=== PATIENT | female | born 1955 | race Caucasian/White ===

== ENCOUNTER → 2017-10-01 | Outpatient (CLI) | payer MEDICAID ==
[~2017-10-01] VITALS: Ht 175.3 cm; Wt 72.5 kg
[~2017-10-01] MED LIST: ACETAMINOPHEN 325 MG TAB ONE; CHLORHEXIDINE GLUCONATE 2 % 1 PACK (2 CLOTHS) TOPICAL PRN; EPINEPHrine HCL PF/SF (1:1000) 1 MG/ML AMP I-OCULAR ONE; HYALURONIDASE/LIDOCAINE/BUPIVACAINE 5 ML SYR RIGHT EYE ONE; IBUP1TAB7 PO; LACTATED RINGER'S 1000 ML IV PRN; METOPROLOL TARTRATE 25 MG TAB PO PRN; POVIDONE IODINE 5% (ANTISEPSIS KIT) 4 APPLICATIONS EACH NARE PRN; PROPOFOL 200 MG/20 ML AMP ONE; SODIUM CHLORID 0.9% 500 ML IV PRN; TOBRAMYCIN/DEXAMETHASONE OPTH OINT 3.5 GM TUBE ONE; VISCOAT OPHT IRRIG SOLN 0.75 ML SYRINGE ONE
[2017-10-01 08:08] VITALS: PULSE 70
[2017-10-01] MEDS: TROPICAMIDE 1% OPHT SOLN 15 ML BTL RIGHT EYE SCH ×3 (08:10→08:20)
[2017-10-01] MEDS: TETRACAINE 0.5% OPTH SOLN 4 ML BTL RIGHT EYE SCH ×3 (08:10→08:20)
[2017-10-01] MEDS: PHENYLEPHRINE HCL 10% OPTH SOLN 5 ML BTL RIGHT EYE SCH ×3 (08:10→08:20)
[2017-10-01] MEDS: CYCLOPENTOLATE HCL 1% OPHT SOLN 2 ML BTL RIGHT EYE SCH ×3 (08:10→08:20)
[2017-10-01 08:55] VITALS: PULSE 63
[2017-10-01 09:34] VITALS: TEMP 97.8
--- NOTE | 2017-10-01 09:36 | PD.OP ---
Operative Report Date of Surgery: Oct 01, 2017 Preoperative Diagnosis: (1) Nuclear sclerotic cataract of right eye Postoperative Diagnosis: (1) Pseudophakia of right eye Procedure: phacoemulsification and intraocular lens implant right eye Anesthesia: retrobulbar block, MAC Surgeon: Kaylen Carranza Assistant Professor Of Music(s): none Operation and Findings: Patient was consented for surgery, given a retrobulbar block by anesthesia, and taken back to the operating room. She was prepped and draped in the usual sterile fashion for ophthalmic surgery. A wire lid speculum was placed in the right eye. A paracentesis incision was created at the 11 o'clock position on the limbus. Vision blue dye and viscoelastic was injected into the anterior chamber. The main incision was created at the 8 o'clock position on the limbus with a 2.4 mm keratome. A continuous curvilinear capsulorrhexis was made on the anterior lens capsule. Hydrodissection was used to separate the lens from the capsule. Phacoemulsification was used to remove the lens nucleus material. Irrigation and aspiration was used to remove the remaining cortical material. The lens implant ([id number] SN [id number]) was placed in the capsular bag. Viscoelastic was removed with irrigation and aspiration. The incisions were irrigated and found to be watertight. Tobradex ointment, a patch, and shield were placed on the right eye. The patient was sent to PACU in stable condition. Kaylen Carranza MD Oct 01, 2017 09:36
[2017-10-01 10:00] VITALS: BP 96/64; PULSE 61; RESP 14; O2SAT 96
--- NOTE | 2017-10-01 21:01 | EKG ---
Date Performed: 10/01/2017 Time Performed: 08:29:07 PTAGE: 62 years EKG: SINUS BRADYCARDIA BORDERLINE ECG NO PREVIOUS TRACING DOCTOR: Denny Skelton Interpretating Date/Time 10/01/2017 21:00:16
== END ==
LOC: PHSDC 07:18
PROVIDERS: ATTEND Ophthalmology
DX: H25.11 Age-related nuclear cataract, right eye (principal); E07.9 Disorder of thyroid, unspecified; E05.00 Thyrotoxicosis with diffuse goiter without thyrotoxic crisis or storm; Z01.810 Encounter for preprocedural cardiovascular examination
CPT/HCPCS: 00142; 66984; 93005; J0171; J7040; V2632

== ENCOUNTER 2018-05-28 12:50 | Observation (INO) ==
[2018-05-28] MEDS ORDERED: Sod Chloride 0.9% Inj 1,000 ML IV.SIG ONE (14:10)
--- NOTE | 2018-05-28 14:17 | ED ---
HPI General Chief Complaint: Syncope Stated Complaint: ABD Pain Time Seen by Provider: 05/28/18 13:54 History of Present Illness HPI narrative: 63-year-old female presented to emergency room for syncope. Yesterday she was discharged home after pelvic floor reconstruction surgery by . Today in the morning she removed the Alonso catheter. Patient stated that he had pain increased and was about 5 out of 10 , at about 10 AM patient felt weak, dizzy so blackened her eyes, patient was able to sit down before she syncopized. Syncope episode was witnessed by her daughter, as per here patient was unresponsive for 1 minute with tremor in his hands. Patient denies any injury, she is fully oriented in the emergency room, vitals stable. She denies chest pain, shortness of breath, dizziness. Patient was able to urinate earlier today. She she still has abdominal pain, which is mild now. Related Data Home Medications Medication Instructions Recorded Confirmed ibuprofen 400 mg PO QID PRN 05/21/18 05/28/18 vit C-E-zinc [id number] 2 tab PO DAILY 05/21/18 05/28/18 [[facility]] Allergies Allergy/AdvReac Type Severity Reaction Status Date / Time procaine [From Novocain] Allergy Tachycardia Verified 05/28/18 13:45 Review of Systems ROS: all other systems reviewed are negative Constitutional Comments: Syncope [facility] Social History Social History Substance History: No History of Abuse Second Hand Smoke Exposure: No Smoking Status: Current every day smoker Tobacco Type: Cigarettes How Often Do You Have a Drink Containing Alcohol: 2 to 3 times a week Recent Travel in [facility] within the Last 8 Weeks: No Recent Out of Country Travel within the Last 8 Weeks: No Immunization History Tetanus Immunization: Unsure Exam Narrative Exam Narrative: GENERAL: 63-year-old female in no apparent distress. SKIN: Focused skin assessment warm/dry. HEAD: Atraumatic. Normocephalic. EYES: Pupils equal and round. No scleral icterus. No injection or drainage. ENT: No nasal bleeding or discharge. Mucous membranes pink and moist. NECK: Trachea midline. No JVD. CARDIOVASCULAR: Regular rate and rhythm. No murmur appreciated. RESPIRATORY: No accessory muscle use. Clear to auscultation. Breath sounds equal bilaterally. GASTROINTESTINAL: Abdomen soft,tenderness over lower abdomen. MUSCULOSKELETAL: No obvious deformities. No clubbing. No cyanosis. No edema. NEUROLOGICAL: Awake and alert. No obvious cranial nerve deficits. Motor grossly within normal limits. Normal speech. PSYCHIATRIC: Appropriate mood and affect; insight and judgment normal. Course Initial Documented Vital Signs Pulse Rate 66 05/28/18 13:47 Respiratory Rate 20 05/28/18 13:47 Blood Pressure 131/78 05/28/18 13:47 Pulse Oximetry 100 05/28/18 13:47 Last Documented Vital Signs Temperature 98.2 F 05/28/18 13:50 Pulse Rate 70 05/28/18 13:50 Respiratory Rate 20 05/28/18 13:47 Blood Pressure 131/78 05/28/18 13:47 Pulse Oximetry 97 05/28/18 15:00 Medical Decision Making MDM Narrative Medical decision making narrative: Blood work ordered to rule out cardiac event , IV fluids given. Reevaluation is pending. Urine analysis is positive for UTI, first set of cardiac enzymes is negative. White count is elevated, possibly due to recent surgery or UTI. Pain improved spontaneously. Patient will be placed on observation for syncope episode. Case discussed with Dr. Palmer. Medical Screen Exam Complete: Yes Emergency Medical Condition: Yes Differential Diagnosis Differential Diagnosis: Cardiac syncope versus vasovagal syncope. Lab Data Result diagrams: 05/28/18 14:13 05/28/18 14:13 Lab Results 05/28/18 05/28/18 05/28/18 Range/Units 14:13 14:13 14:58 WBC 17.1 H (4.0-11.0) th/mm3 RBC 4.03 (4.00-5.30) mil/mm3 Hgb 12.6 (11.6-15.3) gm/dL Hct 36.6 (35.0-46.0) % MCV 90.9 (80.0-100.0) fL MCH 31.2 (27.0-34.0) pg MCHC 34.3 (32.0-36.0) % RDW 13.7 (11.6-17.2) % Plt Count 244 (150-450) th/mm3 MPV 8.3 (7.0-11.0) fL Neut % (Auto) 84.3 H (16.0-70.0) % Lymph % (Auto) 8.7 L (9.0-44.0) % [place] % (Auto) 6.8 (0.0-8.0) % Eos % (Auto) 0.1 (0.0-4.0) % Baso % (Auto) 0.1 (0.0-2.0) % Neut # (Auto) 14.5 H (1.8-7.7) th/mm3 Lymph # (Auto) 1.5 (1.0-4.8) th/mm3 [place] # (Auto) 1.2 H (0.0-0.9) th/mm3 Eos # (Auto) 0.0 (0.0-0.4) th/mm3 Baso # (Auto) 0.0 (0.0-0.2) th/mm3 WBC Differential . Differential Comment Auto diff final Sodium 140 (136-145) meq/L Potassium 3.6 (3.5-5.1) meq/L Chloride 107 (98-107) meq/L Carbon Dioxide 24.7 (21.0-32.0) meq/L Anion Gap 8 (5-15) meq/L BUN 14 (7-18) mg/dL Creatinine 0.90 (0.50-1.00) mg/dL Estimated GFR 63 L (>89) mL/min Random Glucose 92 (74-106) mg/dL Calcium 8.7 (8.5-10.1) mg/dL Total Bilirubin 0.8 (0.2-1.0) mg/dL AST 22 (15-37) U/L ALT 22 (10-53) U/L Alkaline Phosphatase 71 (45-117) U/L Troponin I Less than 0.02 L (0.02-0.05) ng/mL Total Protein 7.3 (6.4-8.2) g/dL Albumin 3.3 L (3.4-5.0) g/dL Urine Color [place] H (Yellw/Straw) Urine Clarity Cloudy H (Clear) Urine pH 8.0 (5.0-8.5) Ur Specific [place] 1.003 (1.002-1.035) Urine Protein 100 H (Neg-Trace) mg/dL Urine Glucose (UA) Negative (Negative) mg/dL Urine Ketones Negative (Negative) mg/dL Urine Occult Blood Large H (Negative) Urine Nitrate Negative (Negative) Urine Bilirubin Negative (Negative) Urine Urobilinogen Less than 2 (Less than 2) mg/dL Ur Leukocyte Esterase Large H (Negative) Urine RBC 52 H (0-3) /hpf Urine WBC 169 H (0-5) /hpf Urine WBC Clumps Few H (None) Ur Squamous Epith Cells 8 (0-5) /hpf Urine Bacteria Moderate H (None) /hpf Micro UA Comment Culture indicated Ur Microscopic Review Not Reportable Urine Culture Comments Culture indicated Discharge Plan Discharge Disposition Patient Disposition: ED Admit(ED Internal Use Only) Discharge Condition Condition: Fair Discharge Order Discharge Orders: ED Use Only Admit Order (Routine); Ordered 05/28/18 Ordered By: Hu Lieberman Physicians Team ED Provider: Hu Lieberman Primary Care Provider: UNKNOWN, Rxs /Orders / Referrals /Forms Prescriptions: No Action ibuprofen 400 mg Tablet 400 mg PO QID PRN (Reason: Pain) RF: 0 vit C-E-zinc [id number] [[facility]] 50 mg-15 unit- 4.5 mg-2.5 mg Tablet,Chewable 2 tab PO DAILY RF: 0 Discharge Interventions Interventions: Vital Signs Last Done: 05/28/18 13:50 Status ED Status: Admitted Observation Patient
[2018-05-28 14:40] LABS: Baso % (Auto) 0.1 % (0.0-2.0); Eos % (Auto) 0.1 % (0.0-4.0); Hematocrit 36.6 % (35.0-46.0); Hemoglobin 12.6 gm/dL (11.6-15.3); Lymph # (Auto) 1.5 th/mm3 (1.0-4.8); Lymph % (Auto) 8.7 % (9.0-44.0); Mean Corpuscular HGB Conc 34.3 % (32.0-36.0); Mean Corpuscular Hemoglobin 31.2 pg (27.0-34.0); Mean Corpuscular Volume 90.9 fL (80.0-100.0); Mean Platelet Volume 8.3 fL (7.0-11.0); Mono # (Auto) 1.2 th/mm3 (0.0-0.9); Mono % (Auto) 6.8 % (0.0-8.0); Neut # (Auto) 14.5 th/mm3 (1.8-7.7); Neut % (Auto) 84.3 % (16.0-70.0); Platelet Count 244 th/mm3 (150-450); Red Blood Count 4.03 mil/mm3 (4.00-5.30); Red Cell Distribution Width 13.7 % (11.6-17.2); White Blood Count 17.1 th/mm3 (4.0-11.0)
[2018-05-28 15:06] LABS: Alanine Aminotransferase 22 U/L (10-53); Alkaline Phosphatase 71 U/L (45-117); Total Protein 7.3 g/dL (6.4-8.2)
[2018-05-28 15:09] LABS: Albumin 3.3 g/dL (3.4-5.0); Anion Gap 8 meq/L (5-15); Aspartate Aminotransferase 22 U/L (15-37); Blood Urea Nitrogen 14 mg/dL (7-18); Calcium 8.7 mg/dL (8.5-10.1); Carbon Dioxide 24.7 meq/L (21.0-32.0); Chloride 107 meq/L (98-107); Glomerular Filtration Rate 63 mL/min (>89); Glucose,Random 92 mg/dL (74-106); Potassium 3.6 meq/L (3.5-5.1); Sodium 140 meq/L (136-145)
[2018-05-28 15:33] LABS: Bacteria,Urine Moderate /hpf; Bilirubin,Urine Negative (Negative); Clarity,Urine Cloudy (Clear); Color,Urine Pink (Yellw/Straw); Glucose,Urine (UA) Negative (Negative); Leukocyte Esterase,Urine Large (Negative); Nitrite,Urine Negative (Negative); Specific Gravity,Urine 1.003 (1.002-1.035); Squamous Epithelial Cell,Urine 8 /hpf (0-5)
[2018-05-28] MEDS ORDERED: levoFLOXacin 500 MG Tablet PO ONE (15:37)
[2018-05-28] MEDS ORDERED: Bisacodyl 10 MG Supp RECTAL PRN (16:29)
--- NOTE | 2018-05-28 17:49 | P.HPIM ---
History of Present Illness Primary Care Physician: UNKNOWN Chief Complaint: Syncope History of Present Illness: Mrs. Miguel is a 63-year-old female. She has no significant past chronic medical history. Yesterday she did have pelvic floor reconstruction surgery. She reports that she had pain medications that she took last night and this morning. Pain medication is uncertain, I cannot find a record in the system and patient cannot recall the name. However, pain treatment is likely contributory. The patient reports that after she got out of bed for the second time she was walking into the kitchen and started having dizziness and difficulty seeing. Her daughter came and witnessed her passed out for approximately 1 minute. She regained consciousness without any residual confusion or recurrence of symptoms. No other complaints. No chest pain. Review of Systems Constitutional: No fevers, no chills no night sweats, no fatigue, no weakness Eyes: No eye pain, no blurry vision, no loss of vision ENT: No sore throat, no ear pain, no rhinorrhea Cardiovascular: No chest pain, no tachycardia, no palpitations, no syncope Respiratory: No wheezing, no cough, no shortness of breath Gastrointestinal: No abdominal pain, no black tarry stools, no bright red blood per rectum, no vomiting, no diarrhea Musculoskeletal: No joint pain, no muscle cramps, no stiffness Integumentary: No rash, no ulcers, no drainage Neurologic: No sensory loss, no loss of motor function, no dizziness Psychiatric: No behavioral changes, no hallucinations, no suicidal ideations [facility] Family History Family History Other Osteoarthritis Social History Social History Substance History: No History of Abuse Second Hand Smoke Exposure: No Smoking Status: Current every day smoker Tobacco Type: Cigarettes How Often Do You Have a Drink Containing Alcohol: 2 to 3 times a week Recent Travel in [facility] within the Last 8 Weeks: No Recent Out of Country Travel within the Last 8 Weeks: No Immunization History Tetanus Immunization: Unsure Medications and Allergies Allergies Allergy/AdvReac Type Severity Reaction Status Date / Time procaine [From Novocain] Allergy Tachycardia Verified 05/28/18 13:45 Home Medications Medication Instructions Recorded Confirmed Type ibuprofen 400 mg PO QID PRN 05/21/18 05/28/18 History vit C-E-zinc [id number] 2 tab PO DAILY 05/21/18 05/28/18 History [facility] Active Medications: Active Medications Acetaminophen (Tylenol) 650 mg PO Q4H PRN PRN Reason: Temp > 100.4 Al Hydroxide/Mg Hydroxide (Milk Of Magnesia Liq) 30 ml PO Q12H PRN PRN Reason: Mild Constipation Bisacodyl (Dulcolax Supp) 10 mg RECTAL DAILY PRN PRN Reason: SEVERE CONSITIPATION Lactulose (Lactulose Liq) 30 ml PO DAILY PRN PRN Reason: SEVERE CONSITIPATION Ondansetron HCl (Zofran Inj) 4 mg IV.PUSH Q6H PRN PRN Reason: NAUSEA OR VOMITING Senna/Docusate Sodium (Tatiana-Colace) 1 tab PO BID NAYELI Sennosides (Senokot) 17.2 mg PO Q12H PRN PRN Reason: Moderate Constipation Sodium Chloride (Ns Flush) 2 ml IV.FLUSH BID NAYELI Sodium Chloride (Ns Flush) 2 ml IV.FLUSH PRN PRN PRN Reason: FLUSH AFTER USING IV ACCESS Physical Exam Vital signs: Last Vital Signs Temp 98.2 F 05/28/18 13:50 Pulse 76 05/28/18 17:03 Resp 17 05/28/18 17:03 BP 117/62 05/28/18 17:03 Pulse Ox 100 05/28/18 17:03 Intake & Output 05/26/18 05/27/18 05/28/18 05/29/18 06:59 06:59 06:59 06:59 Intake Total 1000 / 1000 Balance 1000 / 1000 Weight 71.214 kg Narrative: GENERAL: NAD, A&Ox3 HEAD: Normocephalic. NECK: Supple, trachea midline. No lymphadenopathy. No carotid bruits. EYES: No scleral icterus. No injection or drainage. CARDIOVASCULAR: Regular rate and rhythm without murmurs, gallops, or rubs. RESPIRATORY: Breath sounds equal bilaterally. No accessory muscle use. GASTROINTESTINAL: Abdomen soft, non-tender, nondistended. MUSCULOSKELETAL: No cyanosis, or edema. SKIN: Warm and dry. NEURO: No focal neurological deficits. Results Labs CBC & Chem 7: 05/28/18 14:13 05/28/18 14:13 Caprini VTE Risk Assessment Caprini VTE Risk Assessment: No/Low Risk (score <= 1) Caprini Risk Assessment Model: Point Value = 1 Point Value = 2 Point Value = 3 Point Value = 5 Age 41-60 Minor surgery BMI > 25 kg/m2 Swollen legs Varicose veins or History of unexplained or recurrent spontaneous Oral contraceptives or hormone replacement Sepsis (< 1 month) Serious lung disease, including pneumonia (< 1 month) Abnormal pulmonary function Acute myocardial infarction Congestive heart failure (< 1 month) History of inflammatory bowel disease Medical patient at bed rest Age 61-74 Arthroscopic surgery Major open surgery (> 45 min) Laparoscopic surgery (> 45 min) Malignancy Confined to bed (> 72 hours) Immobilizing plaster cast Central venous access Age >= 75 History of VTE Family history of VTE Factor V Leiden Prothrombin [id number] Lupus anticoagulant Anticardiolipin antibodies Elevated serum homocysteine Heparin-induced thrombocytopenia Other congenital or acquired thrombophilia Stroke (< 1 month) Elective arthroplasty Hip, pelvis, or leg fracture Acute spinal cord injury (< 1 month) Prophylaxis Regimen: Total Risk Factor Score Risk Level Prophylaxis Regimen 0-1 Low Early ambulation 2 Moderate Order ONE of the following: *Sequential Compression Device (SCD) *Heparin 5000 units SQ BID 3-4 Higher Order ONE of the following medications: *Heparin 5000 units SQ TID *Enoxaparin/Lovenox 40 mg SQ daily (WT < 150 kg, CrCl > 30 mL/min) *Enoxaparin/Lovenox 30 mg SQ daily (WT < 150 kg, CrCl > 10-29 mL/min) *Enoxaparin/Lovenox 30 mg SQ BID (WT < 150 kg, CrCl > 30 mL/min) AND/OR *Sequential Compression Device (SCD) 5 or more Highest Order ONE of the following medications: *Heparin 5000 units SQ TID (Preferred with Epidurals) *Enoxaparin/Lovenox 40 mg SQ daily (WT < 150 kg, CrCl > 30 mL/min) *Enoxaparin/Lovenox 30 mg SQ daily (WT < 150 kg, CrCl > 10-29 mL/min) *Enoxaparin/Lovenox 30 mg SQ BID (WT < 150 kg, CrCl > 30 mL/min) AND *Sequential Compression Device (SCD) Assessment and Plan Plan 63-year-old female admitted secondary to syncopal episode. Urinary tract infection present. Syncope Low risk for cardiac disease so echocardiogram is not needed Bilateral carotid ultrasound Orthostatic blood pressure checks Follow on telemetry Urinary tract infection May be contributory Levaquin Probiotics Status post pelvic floor reconstruction surgery [place] as needed for pain Follow-up as an outpatient DVT prophylaxis SCDs
--- NOTE | 2018-05-28 19:03 | US ---
EXAM DATE: 05/28/2018 6:56 PM EST AGE/SEX: 63 years / Female INDICATIONS: Syncope. CLINICAL DATA: This is the patient's initial encounter. Patient reports that signs and symptoms have been present for 1 day and indicates a pain score of 0/10. MEDICAL/SURGICAL HISTORY: . Bladder prolapse. Hard of hearing. Hypotension. MRSA. Rectal prolap se. Tubal ligation. Cataract extraction. COMPARISON: No prior exams available for comparison. VELOCITY PARAMETERS: ICA/CCA Ratio: Right 1.0 , Left 0.9 ICA: Right 74 cm/sec, Left 70 cm/sec CCA: Right 77 cm/sec, Left 76 cm/sec ECA: Right 59 cm/sec, Left 62 cm/sec Vertebral: Right 45 cm/sec antegrade, Left 47 cm/sec antegrade FINDINGS: Right Carotid: No significant plaque is visualized.The waveforms are within normal limits. Left Carotid: No significant plaque is visualized. The waveforms are within normal limits. Other: None. CONCLUSION: 1. Right Internal Carotid Artery: Negative for carotid stenosis. 2. Left Internal Carotid Artery: Negative for carotid stenosis. Electronically signed by: Walter Mclean MD 05/28/2018 7:02 PM EST
[2018-05-28] MEDS: Senna/Docusate Sodium 8.6/50 MG Tablet PO SCH (21:59)
[2018-05-29] MEDS ORDERED: Sod Chloride 0.9% Inj 1,000 ML IV.SIG SCH ×2 (08:17→13:00)
[2018-05-29] MEDS: Senna/Docusate Sodium 8.6/50 MG Tablet PO SCH ×2 (09:03→21:38)
[2018-05-29] MEDS: Lactobacillus Acidophilus/L. Spores Tablet PO SCH ×3 (09:03→17:03)
[2018-05-29 10:35] LABS: Baso % (Auto) 0.2 % (0.0-2.0); Eos # (Auto) 0.1 th/mm3 (0.0-0.4); Eos % (Auto) 0.5 % (0.0-4.0); Hematocrit 34.9 % (35.0-46.0); Hemoglobin 11.8 gm/dL (11.6-15.3); Lymph # (Auto) 1.2 th/mm3 (1.0-4.8); Lymph % (Auto) 11.9 % (9.0-44.0); Mean Corpuscular Hemoglobin 31.7 pg (27.0-34.0); Mean Corpuscular Volume 93.5 fL (80.0-100.0); Mean Platelet Volume 7.7 fL (7.0-11.0); Mono # (Auto) 0.7 th/mm3 (0.0-0.9); Mono % (Auto) 7.1 % (0.0-8.0); Neut # (Auto) 8.1 th/mm3 (1.8-7.7); Neut % (Auto) 80.3 % (16.0-70.0); Platelet Count 197 th/mm3 (150-450); Red Blood Count 3.73 mil/mm3 (4.00-5.30); Red Cell Distribution Width 13.4 % (11.6-17.2); White Blood Count 10.1 th/mm3 (4.0-11.0)
--- NOTE | 2018-05-29 14:29 | P.PNIM ---
Subjective Interval history: Patient is seen lying quietly in bed. She tells me that she is somewhat fatigued but is feeling better. Still has some feeling of dizziness. Pain is adequately controlled. No chest pain or shortness of breath. She does report that she has chronically low blood pressure but not this low. Physical Exam Vital signs: Last Vital Signs Temp 97.8 F 05/29/18 07:55 Pulse 79 05/29/18 12:19 Resp 16 05/29/18 12:19 BP 94/53 L 05/29/18 12:19 Pulse Ox 97 05/29/18 12:19 Intake & Output 05/27/18 05/28/18 05/29/18 05/30/18 06:59 06:59 06:59 06:59 Intake Total 1834 / 1834 1000 / 1000 Balance 1834 / 1834 1000 / 1000 Weight 71.214 kg Narrative: GENERAL: Well-nourished, well-developed adult female in no obvious distress. SKIN: Warm and dry. HEAD: Atraumatic. Normocephalic. CARDIOVASCULAR: Regular rate and rhythm. RESPIRATORY: No accessory muscle use. Clear to auscultation. Breath sounds equal bilaterally. GASTROINTESTINAL: Abdomen soft, mildly tender, non-distended. Positive bowel sounds. MUSCULOSKELETAL: Extremities without clubbing, cyanosis, or edema. No obvious deformities. NEUROLOGICAL: Awake and alert. No obvious cranial nerve deficits. Motor grossly within normal limits. Normal speech. PSYCHIATRIC: Appropriate mood and affect; insight and judgment good. Results Labs CBC & Chem 7: 05/29/18 10:22 05/28/18 14:13 Imaging Imaging: Impressions Carotid Doppler Study 05/28/18 00:00 CONCLUSION: 1. Right Internal Carotid Artery: Negative for carotid stenosis. 2. Left Internal Carotid Artery: Negative for carotid stenosis. Assessment and Plan Plan Plan 63-year-old female admitted secondary to syncopal episode. Urinary tract infection present. Syncope Low risk for cardiac disease so echocardiogram is not needed Bilateral carotid ultrasound; negative Orthostatic blood pressure checks Bolused 1 L in the ED with some improvement. Additional 2 L bolus given today. Follow on telemetry Urinary tract infection May be contributory Levaquin; culture sensitivity Probiotics Status post pelvic floor reconstruction surgery on 05/27 w/ Dr. Marquis Ravi as needed for pain Surgeon notified; declined consult. Follow-up as an outpatient Hemoglobin 14.5 pre-op; 12.6 --> 11.8 now. Likely dilution. Monitor. DVT prophylaxis SCDs Discharge planning: Likely home Progress Note: Quality VTE Deep Vein Thrombosis/Pulmonary Embolism Present on Admission: No
[2018-05-29] MEDS ORDERED: levoFLOXacin 500 MG Tablet PO SCH (16:00)
[2018-05-29 17:45] LABS: Hematocrit 33.1 % (35.0-46.0); Hemoglobin 11.4 gm/dL (11.6-15.3)
[2018-05-29] MEDS: Acetaminophen 325 MG Tablet PO PRN (21:38)
[2018-05-30] MEDS: Acetaminophen 325 MG Tablet PO PRN (04:45)
[2018-05-30 05:20] LABS: Hematocrit 33.2 % (35.0-46.0); Hemoglobin 11.3 gm/dL (11.6-15.3)
[2018-05-30] MEDS: Lactobacillus Acidophilus/L. Spores Tablet PO SCH (08:34)
[2018-05-30] MEDS: Senna/Docusate Sodium 8.6/50 MG Tablet PO SCH (08:34)
--- NOTE | 2018-05-30 08:52 | P.PNIM ---
Subjective Interval history: Patient is seen lying in bed. She reports that she does feel better. Has passed a clot with a little bit of bleeding, not bleeding now. No further episodes of dizziness or syncope. No chest pain or shortness of breath. Discussed that syncopal episode at home was likely due to a combination of dehydration and pain medication. Recommend that she reduce or avoid opioid pain medicines if able to control pain with ibuprofen or acetaminophen instead. Physical Exam Vital signs: Last Vital Signs Temp 98.7 F 05/30/18 08:00 Pulse 67 05/30/18 08:00 Resp 20 05/30/18 08:00 BP 93/63 L 05/30/18 08:00 Pulse Ox 94 L 05/30/18 08:00 Intake & Output 05/28/18 05/29/18 05/30/18 05/31/18 06:59 06:59 06:59 06:59 Intake Total 1834 / 1834 2480 / 2480 Balance 1834 / 1834 2480 / 2480 Weight 71.214 kg Narrative: GENERAL: Well-nourished, well-developed adult female in no obvious distress. SKIN: Warm and dry. HEAD: Atraumatic. Normocephalic. CARDIOVASCULAR: Regular rate and rhythm. RESPIRATORY: No accessory muscle use. Clear to auscultation. Breath sounds equal bilaterally. GASTROINTESTINAL: Abdomen soft, mildly tender, non-distended. Positive bowel sounds. MUSCULOSKELETAL: Extremities without clubbing, cyanosis, or edema. No obvious deformities. NEUROLOGICAL: Awake and alert. No obvious cranial nerve deficits. Motor grossly within normal limits. Normal speech. PSYCHIATRIC: Appropriate mood and affect; insight and judgment good. Results Labs CBC & Chem 7: 05/30/18 04:23 05/28/18 14:13 Labs: Microbiology 05/28/18 14:58 Clean Catch Urine Urine Culture - Final No growth in 48 hours Assessment and Plan Plan Plan 63-year-old female admitted secondary to syncopal episode. Urinary tract infection present. Syncope -resolved. Low risk for cardiac disease so echocardiogram is not needed Bilateral carotid ultrasound; negative Orthostatic blood pressure checks Bolused 1 L in the ED with some improvement. Additional 2 L bolus given today. Follow on telemetry Likely low blood pressure related to pain medication Urinary tract infection -resolved. May be contributory Levaquin; culture sensitivity -no growth. Probiotics Status post pelvic floor reconstruction surgery on 05/27 w/ Dr. Marquis jolly. [place] as needed for pain Surgeon notified; declined consult. Follow-up as an outpatient Hemoglobin 14.5 pre-op; 12.6 --> 11.8 now. Likely dilution. Monitor. DVT prophylaxis SCDs Discharge planning: Likely home Progress Note: Quality VTE Deep Vein Thrombosis/Pulmonary Embolism Present on Admission: No
--- NOTE | 2018-05-30 08:58 | P.DS ---
DS: Providers Date of admission: 05/28/18 17:03 Primary care physician: UNKNOWN Consults: 05/28/18 17:12 HUB Only Consult Order Routine Consulting Provider: [facility],Insurance Brief History from admission: Mrs. Miguel is a 63-year-old female. She has no significant past chronic medical history. Yesterday she did have pelvic floor reconstruction surgery. She reports that she had pain medications that she took last night and this morning. Pain medication is uncertain, I cannot find a record in the system and patient cannot recall the name. However, pain treatment is likely contributory. The patient reports that after she got out of bed for the second time she was walking into the kitchen and started having dizziness and difficulty seeing. Her daughter came and witnessed her passed out for approximately 1 minute. She regained consciousness without any residual confusion or recurrence of symptoms. No other complaints. No chest pain. DS: Summary 63-year-old female admitted secondary to syncopal episode. Syncope -resolved. Low risk for cardiac disease so echocardiogram is not needed; Bilateral carotid ultrasound; negative Bolused 1 L in the ED with some improvement. Additional 2 L bolus given today. Likely due to low blood pressure related to pain medication and dehydration Urinary tract infection -resolved. May be contributory Levaquin; culture sensitivity -no growth. Status post pelvic floor reconstruction surgery on 05/27 w/ Dr. Cho -cassius. Jackson as needed for pain; try to use NSAIDs instead to avoid repeat syncopal episode Surgeon notified; declined consult. Follow-up as an outpatient Hemoglobin 14.5 pre-op; 12.6 --> 11.8 now. Likely dilution. Stable Time Spent with Patient Total time spent providing and/or coordinating discharge services: < 30 min Quality: VTE Deep Vein Thrombosis/Pulmonary Embolism Present on Admission: No Exam Narrative Exam Narrative: Narrative: GENERAL: Well-nourished, well-developed adult female in no obvious distress. SKIN: Warm and dry. HEAD: Atraumatic. Normocephalic. CARDIOVASCULAR: Regular rate and rhythm. RESPIRATORY: No accessory muscle use. Clear to auscultation. Breath sounds equal bilaterally. GASTROINTESTINAL: Abdomen soft, mildly tender, non-distended. Positive bowel sounds. MUSCULOSKELETAL: Extremities without clubbing, cyanosis, or edema. No obvious deformities. NEUROLOGICAL: Awake and alert. No obvious cranial nerve deficits. Motor grossly within normal limits. Normal speech. PSYCHIATRIC: Appropriate mood and affect; insight and judgment good. Results Labs on day of discharge: Labs from last 24 hours 05/30/18 05/30/18 05/29/18 08:41 04:23 17:20 WBC RBC Hgb 11.3 L 11.4 L Hct 33.2 L 33.1 L MCV MCH MCHC RDW Plt Count MPV Neut % (Auto) Lymph % (Auto) [place] % (Auto) Eos % (Auto) Baso % (Auto) Neut # (Auto) Lymph # (Auto) [place] # (Auto) Eos # (Auto) Baso # (Auto) WBC Differential Differential Comment POC Glucose 109 05/29/18 05/29/18 10:22 10:02 WBC 10.1 RBC 3.73 L Hgb 11.8 Hct 34.9 L MCV 93.5 MCH 31.7 MCHC 34.0 RDW 13.4 Plt Count 197 MPV 7.7 Neut % (Auto) 80.3 H Lymph % (Auto) 11.9 [place] % (Auto) 7.1 Eos % (Auto) 0.5 Baso % (Auto) 0.2 Neut # (Auto) 8.1 H Lymph # (Auto) 1.2 [place] # (Auto) 0.7 Eos # (Auto) 0.1 Baso # (Auto) 0.0 WBC Differential . Differential Comment Auto diff final POC Glucose 112 H Impressions ITS Impressions Carotid Doppler Study 05/28/18 00:00 CONCLUSION: 1. Right Internal Carotid Artery: Negative for carotid stenosis. 2. Left Internal Carotid Artery: Negative for carotid stenosis. Discharge Plan Discharge Disposition Patient Disposition: Discharge Home Discharge Condition Condition: Stable Discharge Order Discharge Orders: Discharge Order (Routine); Ordered 05/30/18 Ordered By: Rasheeda Ang Physicians Team Primary Care Provider: UNKNOWN, Attending Provider: Mg Webber Other Providers: [facility],Insurance Rxs /Orders / Referrals /Forms Prescriptions: New levofloxacin 500 mg Tablet 500 mg PO Q24H Qty: 5 RF: 0 Continue ibuprofen 400 mg Tablet 400 mg PO QID PRN (Reason: Pain) RF: 0 vit C-E-zinc iny-hfaomi-[id number] [[facility]] 50 mg-15 unit- 4.5 mg-2.5 mg Tablet,Chewable 2 tab PO DAILY RF: 0 Referrals: Primary Care Provider [Outside] - See Instructions Discharge Instructions Patient Printed Instructions: Levofloxacin (By mouth), Syncope (GEN), Hypotension (GEN) Status ED Status: Left Department Discharge Information Discharge Date/Time: 05/30/18 12:02
--- NOTE | 2018-05-30 17:59 | ECG ---
Date Performed: 05/28/2018 Time Performed: 14:22:23 PTAGE: 63 years EKG: Sinus rhythm NORMAL ECG PREVIOUS TRACING : 05/21/2018 11.25 DOCTOR: Amol Patrick Interpretating Date/Time 05/30/2018 17:36:09
--- NOTE | 2018-05-31 16:39 | ECG ---
Date Performed: 05/30/2018 Time Performed: 01:46:35 PTAGE: 63 years EKG: Sinus rhythm Since the previous tracing, no significant change noted NORMAL ECG PREVIOUS TRACING : 05/28/2018 14.22 DOCTOR: Louis Arrington Interpretating Date/Time 05/31/2018 16:36:59
== END 2018-05-30 12:02 | disposition home or self-care (01) ==
LOC: NEDA 12:50 → NEPC 12:50 → NEPHCDU 18:14
PROVIDERS: ADMIT Hospitalist; ATTEND Hospitalist